=== PATIENT | female | born 1995 | race Two or more races ===

== ENCOUNTER 2024-10-09 09:21 | Observation (INO) | payer BC, SELFPAY ==
[2024-10-09] VITALS (15 sets, daily range): BP systolic 108–140; BP diastolic 69–91; PULSE 67–113; RESP 15–20; TEMP 36.2–37.3; O2SAT 97–100; BMI 35.6
--- NOTE | 2024-10-09 09:52 | EKG_ITS ---
[facility] Test Date: 2024-10-09 Pat Name: SHALONDA TODD Department: Room: - Gender: Female [employer] Investigator: : 1995 Requested By: Gabe Soto Order Number: [id number] Reading MD: Gabe Soto Measurements Intervals [place] Rate: 89 P: 18 MN: 151 QRS: 12 QRSD: 104 T: 13 QT: 352 QTc: 429 Interpretive Statements SINUS RHYTHM INCOMPLETE RIGHT BUNDLE BRANCH BLOCK [90+ ms QRS DURATION, TERMINAL R IN V1/V2, 40+ ms S IN I/aVL/V4/V5/V6] No previous ECG available for comparison /store/S0/[id number].pdf
--- NOTE | 2024-10-09 09:52 | XR_ITS ---
Examination: AP chest single view Technique one AP portable upright chest single view Exam date and time: October 01, 2024 1048 hrs. Indications: Dyspnea today. Findings: Normal heart size. Lungs are clear. Osseous structures are intact. Impression: No active disease
--- NOTE | 2024-10-09 10:18 | EDNOTE_ITS ---
ED Female Urogenital RME/HPI General Chief complaint: Urogenital-Female Stated complaint: Bartholin gland cyst abscess Time Seen by Provider: 10/09/24 09:50 Arrival date/time: 10/09/24 09:21 RME / HPI RME / HPI Narrative: 29 year old female presents to the ED sent by [employer] Dr. Lara for evaluation bartholin cyst. Patient states 4 days ago she noted swelling to the left vulva that is progressively worsening. Accompanied by pain that is aggravated with palpating or sitting, rating 8/10. States she consulted with [employer] Dr. Lara today and while in office he attempted to drain the cyst that was unsuccessful. Denies any pain with bowel movements. Denies fevers, chills, or other associated symptoms. LMP was 09/24/2024 and shorter than normal. Denies . Reports history of similar bartholin cyst, also on the left vulva 2 years ago that was drained. Related Data Home Medications ?Medication ?Instructions ?Recorded ?Confirmed No Known Home Medications 04/05/2203/13 Allergies Allergy/AdvReac Type Severity Reaction Status Date / Time No Known Allergies Allergy Verified 10/09/24 09:25 Review of Systems Review of Systems Narrative Review of Systems: Constitutional: DENIES; Fevers Eyes: DENIES; Loss of vision Head/Ear/Nose: DENIES; Loss of hearing Throat: DENIES; Dysphagia Cardiovascular: DENIES; Chest pain, dyspnea or syncope Respiratory: DENIES; Shortness of breath Gastrointestinal: DENIES; Rectal bleeding or melena. Genitourinary: SEE HPI +bartholin cyst. DENIES; Dysuria (painful or difficult urination) Musculoskeletal: DENIES; Arthralgia (pain in a joint),; Skin: DENIES; Rash Neurological: DENIES; Loss of function or movement Psychiatric: DENIES; recent major life stressor, emotional problem, illicit drug use or abuse Endocrinology: DENIES; Weight change Hematologic/Lymphatic: DENIES; Abnormal bruising Allergic/Immunologic: DENIES; Urticaria (hives) Past Medical History Past Medical History GASTROINTESTINAL: Positive Gastrointestinal Disorders and Gall Bladder Disease REPRODUCTIVE: Positive Previous Pregnancies (X2) Family History FAMILY HISTORY: Positive Family Cardiac Disorders (MOTHER (HTN)), Family Gastrointestinal Problems (MOTHER (GALL BLADDER)) and Family Surgery (MOTHER) Surgical History SURGICAL: Positive Section (X1) Social History SMOKING STATUS: Former smoker 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 Sinus tach on the monitor 140-150 the patient is non-toxic, in no apparent distress and appears healthy with a patent airway, no respiratory distress and has no apparent circulatory problems. Head & Scalp: Normocephalic, atraumatic. Face: Appears normal and is without lesions, deformity. Ears: Left external pinna appears normal. Right external pinna appears normal. Eyes: The sclera is anicteric. No obvious photophobia. The Left and Right Orbit/Lid/Conjunctiva appears normal without swelling, discoloration or inje ction. Nose: The nose is without deformity, discharge or tenderness; Throat: Appears normal. The mucous membranes are pink and moist without exudates, redness or mass seen. The tongue appears normal. Neck: The neck is supple and no apparent mass or adenopathy. Chest: The chest wall is normal in size and symmetry and has no chest wall tenderness or crepitus. The patient displays normal ventilator effort without retractions, accessory muscle use and has adequate air movement bilaterally with no wheezes and no rales. Cardiovascular: Regular rate and rhythm; No murmurs, rubs, or gallops; Gastrointestinal: The abdomen appears normal. No obvious hernias or mass. The abdomen is soft and benign, non-distended, with no pain, no guarding and no rebound tenderness. Bowel sounds are present and normal sounding. No CVA tenderness. Genitourinary: Inspection of the vaginal vulvar area reveals a normal introitus. Bilateral vulvar are supple nontender and normal. There is an area of a 4 x 2 cm indurated tender mass vulva lateral to the perineum on the left appears to be a abscess. There is no drainage. There is an old scar there. Rectal area inspection is normal she is having no pain with defecation. Back/Spine: Normal inspection. Extremities/Musculoskeletal/lymphatic: The bilateral upper and lower extremities are warm. There is no evidence of arterial insufficiency. There is no evidence of venous insufficiency/edema. The patient spontaneously moves bilateral upper and lower extremities with no pain and no limitation of movement. There is no apparent, injury or trauma. Skin: The skin is warm, dry and intact. No rashes. No petechia. No purpura. No abnormal bruising. The color is appropriate with no cyanosis. Mental status/Psychiatric: Mental status is appropriate for age. The patient has no apparent delusions, visual hallucinations, no apparent audible hallucinations. The patient has no apparent suicidal thoughts/ideation and no apparent homicidal thoughts/ideation. Neurological: The patient is awake, alert, interactive, cordial, cooperative and is oriented to name and situation. The patient follows commands and answers historical question with no impairment. There is no visual disturbance apparent. The pupils are equal and reactive bilaterally with normal eye movements and no diplopia The bilateral upper and lower extremities have normal strength, normal range of motion and normal functioning. The gait, station and balance appear to be baseline with no acute change Course Quality Measures none Orders Category Date Time Status Place in Surgical Day Care Routine Admission 10/09/24 10:14 Active condition [Patient Condition] Routine Admission 10/09/24 Ordered EKG (ED ONLY) *Do not use* NOW Care 10/09/24 09:52 Completed IV [Insert IV] NOW Care 10/09/24 10:18 Active EKG (ED Only) Stat Exams 10/09/24 09:52 Draft US OB transvaginal Stat Exams 10/09/24 11:50 Ordered XR chest 1V portable Stat Exams 10/09/24 09:52 Completed Beta HCG,Quantitative Stat Lab 10/09/24 10:08 Completed CBC Stat Lab 10/09/24 10:08 Completed Comprehensive Metabolic Panel Stat Lab 10/09/24 10:08 Completed PT [Prothrombin Time with INR] Stat Lab 10/09/24 10:08 Completed PTT [Partial Thromboplastin Time] Stat Lab 10/09/24 10:08 Completed Type and Screen Stat Lab 10/09/24 10:08 Completed Urinalysis Stat Lab 10/09/24 09:52 Ordered Clindamycin 900Mg Ivpb [Cleocin/D5w Ivpb] 900 mg Med 10/09/24 10:19 Discontinued Pre-Mixed [Pre-mixed Bag] 1 bag IV X1 Morphine Inj Med 10/09/24 10:49 Discontinued 4 mg IVP X1 ONE Ondansetron Inj [Zofran Inj] Med 10/09/24 10:49 Discontinued 4 mg IV X1 ONE Sodium Chloride 0.9% 1000 ml [Ns] 1,000 ml Med 10/09/24 09:51 Active IV 150 mls/hr Code Status Routine Oth 10/09/24 10:15 Ordered Vital Signs Vital signs: Vital Signs Temperature 98.5 F 10/09/24 09:44 Pulse Rate 67 10/09/24 09:44 Respiratory Rate 18 10/09/24 09:44 Blood Pressure 140/91 H 10/09/24 09:44 Pulse Oximetry (%) 97 10/09/24 09:44 Oxygen Delivery Method Room Air 10/09/24 09:44 Pulse ox is 97% on room air which is adequate. Urogenital - Female MDM Narrative MDM Narrative:: Patient states here for evaluation of an abscess concerning for Bartholin's but appears to be posterior to this and lateral to the perineum with a 4 x [address] Lara OB doctor sent her was called and updated he states he will plan to can take her to the operating room. Preop workup is ordered and pending as of 1015 hrs. per Medical workups come back and she is which is consistent with part of her. Being attenuated couple weeks ago Dr Lara is aware and is ordered an ultrasound and CBC came back with a white count of 16,000 PT/INR within normal limits electrolytes and chemistries are unremarkable kidney functions normal. Transaminases are normal. Beta hCG is 8208. She is a positive blood. Chest x-ray reviewed myself shows normal chest with normal heart cardiac silhouette no infiltrates no effusion. At 1220 hrs. patient is waiting for an ultrasound and Dr Lara will make a decision of how to proceed with respect to the abscess drainage. He also ordered some clindamycin. Evidently he still planning to take the patient to the operating room at 1215 hrs. Patient data External records reviewed:: [facility] previous records (I reviewed H&P on 04/06/2022 ) Clinical information provided by:: patient Social determinants that could affect healthcare access:: none Patient has the following chronic illnesses:: Hx of bartholin cyst 2 years ago How is presenting disease/condition affected by chronic disease/condition?: exacerbated by Evaluation data The following diagnostics were reviewed and interpreted by me:: lab results and radiology exam(s) Lab and/or radiology exams considered but not ordered:: None Interpretation Summary: Ordering Physician: Gabe Soto MD Date of Service: 10/09/24 Procedure(s): XR chest 1V portable Accession Number(s): [id number] cc: Gabe Soto MD; Felix Vasquez MD; NO PRIMARY/FAMILY,PHYSICIAN~ Examination: AP chest single view Technique one AP portable upright chest single view Exam date and time: October 01, 2024 1048 hrs. Indications: Dyspnea today. Findings: Normal heart size. Lungs are clear. Osseous structures are intact. Impression: No active disease Dictated By: Felix Vasquez MD Signed By: <Electronically signed by Felix Vasquez MD in OV> 10/09/24 1120 Medications / Prescriptions Medications or Prescriptions considered but not ordered:: None Medication administrations:: Medication Administration History Sodium Chloride (Ns) 1,000 mls @ 150 mls/hr IV .Q6H40M ONE Stop: 10/09/24 16:30 Last Admin: 10/09/24 11:15 Dose: 150 mls/hr Documented By: DO Discontinued Medications Clindamycin Phosphate 900 mg/ (IV Miscellaneous Supplies) 50 mls @ 50 mls/hr IV X1 ONE Stop: 10/09/24 11:18 Last Admin: 10/09/24 11:16 Dose: 50 mls/hr Documented By: DO Morphine Sulfate (Morphine Sulf Inj 10 Mg/Ml Vial) 4 mg IVP X1 ONE Stop: 10/09/24 10:50 Last Admin: 10/09/24 11:14 Dose: 4 mg Documented By: DO Ondansetron HCl (Ondansetron Inj 2 Mg/Ml Inj 2 Ml) 4 mg IV X1 ONE; Protocol Stop: 10/09/24 10:50 Last Admin: 10/09/24 11:13 Dose: 4 mg Documented By: DO See above Consultations Consultation(s) initiated? (list below): Yes Consultation #1 (Physician, Specialty, Details): I spoke with [employer] Dr. Lara. Discussed patients HPI, ED course, exam findings. States he will be taking the patient to the OR. Diagnosis Urogenital Female Differential Diagnosis: bacterial vaginosis, trichomoniasis, vaginitis and cyst of Bartholin's gland Most likely diagnosis given after review of the tests above:: Abscess, perineum Admission Indicated Admission indicated?: indicated Admission Request Was there a request for admission?: Yes Admission Attestation Admission request attestation: Discussed case with [] from Hospitalist service regarding admission. Discussed patients ED course, exam findings, labs, and radiology results. The Hospitalist [agrees,declines] to accept the patient for admission. Disposition Plan Disposition Plan: Admit (to Dr. Lara ) Discharge Plan Plan Patient Disposition: Admit Acute Care w/in Hospital Disposition Comment: Dr Lara to admit Problem List Clinical Impression: Abscess, perineum,
[2024-10-09 10:28] LABS: Basophils % (Auto) 0 % (0-2.5); Eosinophils # (Auto) 0.1 Thou/mm3 (0.0-0.5); Eosinophils % (Auto) 0 % (0-10); Hemoglobin 12.5 g/dL (12.0-16.0); Immature Granulocytes % (Auto) 0 % (0-0); Immature Granulocytes Auto 0.06 Thou/mm3 (0.00-0.00); Lymphocytes # (Auto) 1.9 Thou/mm3 (1.0-4.8); Lymphocytes % (Auto) 11 % (10-50); Mean Corpuscular HGB Conc 32.9 g/dl (31.0-37.0); Mean Corpuscular Volume 79 fL (80-100); Monocytes # (Auto) 0.9 Thou/mm3 (0.0-0.8); Monocytes % (Auto) 5 % (0-12); Neutrophils # (Auto) 13.6 Thou/mm3 (1.8-7.7); Neutrophils % (Auto) 82 % (37-80); Nucleated Red Blood Cell % 0 /100 WBC (0); Platelet Count 281 Thou/mm3 (140-440); RDW Standard Deviation 37.2 fL (36.4-46.3); Red Blood Count 4.81 Miln/mm3 (4.00-5.20); White Blood Count 16.5 Thou/mm3 (3.6-11.0)
[2024-10-09 10:41] LABS: Partial Thromboplastin Time 26.8 Seconds (22.0-36.0); Prothrombin Time 11.3 Seconds (9.0-12.2)
[2024-10-09 10:57] LABS: Alanine Aminotransferase 26 U/L (10-49); Albumin, Serum 4.5 gm/dL (3.5-5.0); Albumin/Globulin Ratio 1.6 (1.2-2.2); Alkaline Phosphatase 92 U/L (46-116); Anion Gap 8 (7-16); Aspartate Amino Transferase 20 U/L (0-34); BUN/Creatinine Ratio 16 Ratio (12-20); Bilirubin,Total 0.4 mg/dL (0.3-1.2); Blood Urea Nitrogen 11 mg/dL (9-23); Calcium 9.3 mg/dL (8.3-10.6); Calcium (Corrected) 9.3 mg/dL (8.5-10.1); Carbon Dioxide 25.5 mMol/L (20.0-31.0); Chloride 105 mMol/L (98-107); Creatinine (Component) 0.7 mg/dL (0.6-1.3); Estimated Creatinine Clearance 126.1 mL/min (>60); Globulin 2.9 gm/dL (2.3-3.5); Glucose 94 mg/dL (74-106); Osmolality,Calculated 275 (275-295); Potassium 3.6 mMol/L (3.4-5.1); Sodium 138 mMol/L (136-145); Total Protein 7.4 gm/dL (5.7-8.2); eGFR > 60 See Note
[2024-10-09 11:05] LABS: Beta HCG,Quantitative 8208 mIU/mL (<5.0)
[2024-10-09] MEDS: ONDANSETRON INJ 2 MG/ML INJ 2 ML 4 MG IV (11:13)
[2024-10-09] MEDS: MORPHINE SULF INJ 10 MG/ML VIAL 4 MG IVP (11:14)
[2024-10-09] MEDS: SODIUM CHLORIDE 0.9% 1000 ML 1,000 ML 150 ML IV (11:15)
[2024-10-09] MEDS: CLINDAMYCIN 900MG IVPB 900 MG in PRE-MIXED 1 BAG 50 MG IV ×2 (11:16→22:14)
--- NOTE | 2024-10-09 11:50 | XR_ITS ---
Examination: OB Transvaginal ultrasound of the pelvis, complete Technique: Transvaginal sonographic images pelvis performed using garcía scale imaging Exam date and time: October 01, 2024 1133 hrs. Indications: Diagnosis Bartholin cyst drainage today. Findings: Uterus 7.9 cm with intrauterine gestational sac 0.8 cm corresponding to 5 weeks 4 days gestational age No pole No cardiac activity Yolk sac is present Right ovary 2.6 cm arterial flow Left ovary 2.3 cm arterial flow Mild fluid in the cul-de-sac Impression: Empty intrauterine gestational sac corresponding to 5 weeks 4 days gestational age Recommend short-term follow-up transvaginal pelvic sonography to document viability
--- NOTE | 2024-10-09 11:58 | PC.NURSE ---
REPORT GIVEN TO LYN IN OR
--- NOTE | 2024-10-09 12:03 | ESHP_ITS ---
Documentation for date of: 10/09/24 [employer] SAL[employer]ANT - HPI History of Present Illness History of present illness: Ms. GORE is a 29 year old female with a history of a left vulvar abscess in 2021 who presented to the office today complaining of pain and swelling in the left lower vulvar area. No fever or drainage or vaginal discharge. LMP 09/24 but her HCG is over 8,000 consistent with first trimester . She denies any pelvic or abdominal pain or vaginal bleeding. Review of Systems Cardiovascular Comments: Past Medical History Past Medical History GENITOURINARY: Positive Genitourinary Disorders (Left vulvar abscess) Surgical History SURGICAL: Positive Section and Hx Cholecystectomy OTHER SURGICAL HX: Incision and Drainage of left vulvar abscess Meds Home Medications and Allergies Home Medications ?Medication ?Instructions ?Recorded ?Confirmed ?Type No Known Home Medications 04/05/2203/13 History Allergies Allergy/AdvReac Type Severity Reaction Status Date / Time No Known Allergies Allergy Verified 10/09/24 09:25 Exam - [employer]ANT Vital Signs Temp Pulse Resp BP Pulse Ox O2 Del Method 99.2 F 104 H 19 128/78 97 Room Air 10/09/24 10:20 10/09/24 10:20 10/09/24 10:20 10/09/24 10:20 10/09/24 10:20 10/09/24 10:20 Routine HEENT Exam Comments: Oropharynx and sclera clear Routine Respiratory Exam Comments: CTA B/L Routine Cardiovascular Exam Comments: RRR Routine Abdominal Exam Comments: Nontender Routine Exam Comments: Left vulvar abscess 4 x 4 cm Left bartholin gland abscess Routine Extremities Exam Comments: Nontender [employer]SULTANT - Results Labs 10/09/24 10:08 10/09/24 10:08 Labs: Short CBC 10/09/24 Range/Units 10:08 WBC 16.5 H (3.6-11.0) Thou/mm3 Hgb 12.5 (12.0-16.0) g/dL Hct 38.0 (36.0-46.0) % Plt Count 281 (140-440) Thou/mm3 BMP 10/09/24 10:08 Sodium 138 Potassium 3.6 Chloride 105 Carbon Dioxide 25.5 BUN 11 Creatinine 0.7 Glucose 94 Calcium 9.3 Liver Function 10/09/24 Range/Units 10:08 Total Bilirubin 0.4 (0.3-1.2) mg/dL AST 20 (0-34) U/L ALT 26 (10-49) U/L Alkaline Phosphatase 92 (46-116) U/L Albumin 4.5 (3.5-5.0) gm/dL Impressions Impression: Left vulvar and bartholin gland abscess Early of uncertain viability with no evidence of extrauterine . Marsupialization of Bartholin Gland/Vulvar abscess Informed consent obtained. Pt made aware of the risks, complications, alternatives and benefits of the proposed procedure and she agrees. Quality Measures Quality Measures none
--- NOTE | 2024-10-09 13:43 | SUR.PHASEI ---
1343: Pt. AAOx4, vitals stable, breathing unlabored, no complaint of pain or nausea, dressing to jay area CDI, no active bleed noted, report received from Felix PERAZA and Nikolai VASQUEZ.
--- NOTE | 2024-10-09 15:30 | SUR.PHASEII ---
1530: Pt. AAOx4, vitals stable, breathing unlabored, no complaint of pain or nausea, peripad in place with minimal blood, vaginal packing is in place, pt. tolerated bites of jello well and sips of water well, gave report to Alana VASQUEZ prior to transfer to room 357. Family made aware of transfer to room.
[2024-10-09] MEDS: cefTRIAXone 1,000 MG in SODIUM CHLORIDE 0.9% (Popper) 50 ML 100 MG IV ×2 (16:01→20:49)
--- NOTE | 2024-10-09 20:59 | PC.NURSE ---
Per Pharmacist Romaine, it is safe to give [place] for pain.
[2024-10-09] MEDS: HYDROcodone/APAP 5/325 TABLET 1 TAB PO (21:01)
[2024-10-10] VITALS: BP 101/65; PULSE 84; RESP 16; TEMP 36.6; O2SAT 98
[2024-10-10 03:08] VITALS: PULSE 80; RESP 16; RESP 97
[2024-10-10] MEDS: HYDROcodone/APAP 5/325 TABLET 1 TAB PO ×2 (03:12→08:10)
--- NOTE | 2024-10-10 03:14 | PC.NURSE ---
Accessed chart to assist primary nurse.
[2024-10-10 04:00] VITALS: BP 110/68; PULSE 71; RESP 18; TEMP 36.1; O2SAT 99
[2024-10-10] MEDS: CLINDAMYCIN 900MG IVPB 900 MG in PRE-MIXED 1 BAG 50 MG IV (05:27)
[2024-10-10 06:01] LABS: Basophils # (Auto) 0.1 Thou/mm3 (0.0-0.2); Basophils % (Auto) 0 % (0-2.5); Eosinophils # (Auto) 0.2 Thou/mm3 (0.0-0.5); Eosinophils % (Auto) 2 % (0-10); Hematocrit 33.9 % (36.0-46.0); Immature Granulocytes % (Auto) 1 % (0-0); Immature Granulocytes Auto 0.06 Thou/mm3 (0.00-0.00); Lymphocytes # (Auto) 2.4 Thou/mm3 (1.0-4.8); Lymphocytes % (Auto) 18 % (10-50); Mean Corpuscular HGB Conc 32.4 g/dl (31.0-37.0); Mean Corpuscular Hemoglobin 25.9 pg (25.0-35.0); Mean Corpuscular Volume 80 fL (80-100); Monocytes # (Auto) 0.8 Thou/mm3 (0.0-0.8); Monocytes % (Auto) 6 % (0-12); Neutrophils # (Auto) 9.6 Thou/mm3 (1.8-7.7); Neutrophils % (Auto) 73 % (37-80); Nucleated Red Blood Cell % 0 /100 WBC (0); Platelet Count 242 Thou/mm3 (140-440); RDW Standard Deviation 37.2 fL (36.4-46.3); Red Blood Count 4.25 Miln/mm3 (4.00-5.20); White Blood Count 13.2 Thou/mm3 (3.6-11.0)
[2024-10-10 07:17] VITALS: PULSE 78; RESP 19; RESP 98
[2024-10-10 07:45] VITALS: BP 100/73; PULSE 77; RESP 19; TEMP 36.7; O2SAT 99
[2024-10-10] MEDS: cefTRIAXone 1,000 MG in SODIUM CHLORIDE 0.9% (Popper) 50 ML 100 MG IV (08:04)
--- NOTE | 2024-10-10 10:18 | PC.NURSE ---
Patient has discharge order. Per MD, discharge after morning dose of rocephine IV.
--- NOTE | 2024-10-10 10:44 | ESPR_ITS ---
RE: SHALONDA GORE : 1995 DATE OF SERVICE: 10/10/2024 S: The patient denies any problem or complaint. She is voiding, ambulating, tolerating regular diet, passing flatus. She denies any vaginal bleeding. She denies any pain that is uncontrolled. She denies any abdominal or pelvic pain. O: Vital Signs: Blood pressure 100/73, heart rate 77, respirations 19, temperature is 98.1, pulse ox is 99% on room air. Lungs: Clear to auscultation bilaterally. Heart: Regular rate and rhythm. Abdomen: Nontender. Extremities: Nontender. LABORATORY DATA: Hemoglobin pre-surgery is 12.5, post-surgery is 11.0. White blood cell count pre-surgery is 16.5, post-surgery is 13.2. Gram stain was negative. Abscess culture is pending. ASSESSMENT: 1. Status post incision and drainage of left vulvar abscess. 2. Early with intrauterine gestational sac at 5 weeks and 4 days too early to confirm viability. P: Discharge home after morning Rocephin dosing. Plan, Augmentin and clindamycin for the next 10 days, hydrocodone p.r.n. pain. These prescriptions were sent via the office electronic computer to her preferred pharmacy in [place]. Discharge instructions given. The patient was made aware to contact me immediately with any high fevers, chills, worsening vulvar pain or swelling, diarrhea, and crampy abdominal pain. The patient has my phone number and will call me this weekend if any problems. Otherwise, I will see her early Saturday morning in the office. DT: 08:00:01 TT: 10:42:00 Ref: [id number] - TID: [id number]
--- NOTE | 2024-10-12 08:46 | ESOP_ITS ---
RE: SHALONDA GORE : 1995 DATE OF OPERATION: 10/09/2024 PREOPERATIVE DIAGNOSES: 1. Left Vulvar abscess. 2. Early . POSTOPERATIVE DIAGNOSES: 1. Left Vulvar abscess. 2. Early . PROCEDURE PERFORMED: Incision and drainage of left vulvar abscess SURGEON: Shawn aLra DO COTTON EXPERT: None. ANESTHESIA: Spinal. ANESTHESIOLOGIST: Dr. Martin. ESTIMATED BLOOD LOSS: 25 mL. COMPLICATIONS: None. COUNTS: Correct. PATHOLOGY: None. CULTURES: Wound culture FINDINGS: A 5 x 5 cm left vulvar abscess containing purulent material but remaining indurated after drainage. DESCRIPTION OF PROCEDURE: After proper informed consent was obtained and the patient was made aware of the risks, complications, alternatives, benefits of the proposed procedure, she was taken to the operating room where she underwent induction of spinal anesthesia. She was prepped and draped in the usual sterile fashion in the dorsal lithotomy position. A timeout was performed. The abscess was incised and a 1 cm incision was used to drain the abscess. The abscess cavity was probed and irrigated with saline. Copious purulent drainage was noted; however, the abscess torres remained indurated after drainage. A gauze ribbon iodoform packing was placed in the os of the abscess cavity. As the patient was awake, I explained to her the nature of her condition, intraoperative findings, expectation for recovery, and the plan to continue antibiotics overnight and observe her in the hospital setting, allowing her more of an opportunity to get IV antibiotics given the size of the abscess. The patient was placed in the supine position and transferred to the recovery room in stable condition. She tolerated the procedure well. Counts were correct. I discussed with the patient's the nature of her condition, intraoperative findings, expectation for recovery. All questions answered. DT: 14:11:24 TT: 17:36:00 Ref: [id number] - TID: [id number] [facility]
== END 2024-10-10 10:26 | disposition home or self-care (01) ==
LOC: SERX 10:39 → S2EX 10:44 → S3NX 17:18 → S2EX 10-12 07:53 → S3NX 10-12 07:53
PROVIDERS: Admitting Provider Specialist; Emergency Provider Emergency Medicine; Referring Provider Specialist; Visit Provider Specialist
PROC: (CPT 56440; principal; 2024-10-09 12:45)
DX: O34.71 Maternal care for abnormality of vulva and perineum, first trimester (principal); N75.1 Abscess of Bartholin's gland; Z82.49 Family history of ischemic heart disease and other diseases of the circulatory system; Z87.891 Personal history of nicotine dependence; Z90.49 Acquired absence of other specified parts of digestive tract; Z01.810 Encounter for preprocedural cardiovascular examination
CPT/HCPCS: 56405; 36415; 71045; 76817; 80053; 81001; 84702; 85025; 85610; 85730; 86850; 86900; 86901; 87070; 87075; 87077; 87186; 87205; 93005; 96365; 96366; 96374; 96375; 99285; A4217; A4649; G0378; J0696; J2270; J2405; J3010; J7030; J7050; S0077; A9270; J0736

== ENCOUNTER 2025-05-23 04:38 | Inpatient (IN) | payer BC, SELFPAY ==
[2025-05-23] VITALS (19 sets, daily range): BP systolic 94–125; BP diastolic 66–90; PULSE 73–94; RESP 13–99; TEMP 36.3–37.5; O2SAT 96–99; BMI 38.5
[2025-05-23] MEDS: RINGERS LACTATED 1000 ML 1,000 ML 999 ML IV (06:06)
[2025-05-23 06:26] LABS: Basophils # (Auto) 0.1 Thou/mm3 (0.0-0.2); Basophils % (Auto) 0 % (0-2.5); Eosinophils # (Auto) 0.2 Thou/mm3 (0.0-0.5); Eosinophils % (Auto) 2 % (0-10); Hematocrit 38.6 % (36.0-46.0); Hemoglobin 12.4 g/dL (12.0-16.0); Immature Granulocytes Auto 0.09 Thou/mm3 (0.00-0.00); Lymphocytes # (Auto) 2.6 Thou/mm3 (1.0-4.8); Lymphocytes % (Auto) 20 % (10-50); Mean Corpuscular HGB Conc 32.1 g/dl (31.0-37.0); Mean Corpuscular Hemoglobin 26.1 pg (25.0-35.0); Mean Corpuscular Volume 81 fL (80-100); Monocytes # (Auto) 0.7 Thou/mm3 (0.0-0.8); Monocytes % (Auto) 6 % (0-12); Neutrophils # (Auto) 9.4 Thou/mm3 (1.8-7.7); Neutrophils % (Auto) 72 % (37-80); Nucleated Red Blood Cell # 0.00 Thou/mm3 (0.00-0.00); Nucleated Red Blood Cell % 0 /100 WBC (0); Platelet Count 246 Thou/mm3 (140-440); RDW Standard Deviation 41.9 fL (36.4-46.3); Red Blood Count 4.75 Miln/mm3 (4.00-5.20); White Blood Count 13.1 Thou/mm3 (3.6-11.0)
[2025-05-23 06:51] LABS: Amphetamine/Metham Scrn,Ur OB Negative (Negative); Benzoylecgonine Screen, Ur OB Negative (Negative); Opiate Screen,Urine OB Negative (Negative); THC Screen,Urine OB Negative (Negative)
--- NOTE | 2025-05-23 06:51 | PD.LDHP ---
Documentation for date of: 05/23/25 OB Labor/Induct. HPI History of Present Illness : 3 Para: 2 Term pregnancies: 2 pregnancies: 0 Living children: 2 History of Abortions: Spontaneous and Elective: 0 History of Vaginal deliveries: 1 History of sections: Yes History of : No Date of last menstrual period: 09/03/24 BONI: 06/10/25 Gestational Age (weeks): 37 Gestational Age (days): 3 Gestational age based on last menstrual period: 37 History of present illness: H and P dictated in Nuance on STAT line #9: [id number] History of Present Adequate Care: Yes Past Medical History Surgical History SURGICAL: Positive Section Meds Home Medications and Allergies Home Medications ?Medication ?Instructions ?Recorded ?Confirmed ?Type ferrous sulfate 325 mg (65 mg 325 mg feeding tube QDAY 05/23/25 05/23/25 History iron) tablet vit no.95-ferrous 1 tab PO QDAY 05/23/25 05/23/25 History fumarate 28 mg-folic acid 800 mcg tablet () Allergies Allergy/AdvReac Type Severity Reaction Status Date / Time No Known Allergies Allergy Verified 05/23/25 05:12 OB Exam Physical Exam Vital signs: Temp Pulse Resp BP Pulse Ox 99 F 73 16 119/89 H 99 05/23/25 04:45 05/23/25 04:51 05/23/25 04:45 05/23/25 04:51 05/23/25 04:58 OB Results Labs 05/23/25 05:50 Labs: Short CBC 05/23/25 Range/Units 05:50 WBC 13.1 H (3.6-11.0) Thou/mm3 Hgb 12.4 (12.0-16.0) g/dL Hct 38.6 (36.0-46.0) % Plt Count 246 (140-440) Thou/mm3
[2025-05-23 07:11] LABS: Syphilis Nonreactive (Nonreactive)
[2025-05-23] MEDS: METOCLOPRAMIDE INJ 5 MG/ML VIAL 2 ML 10 MG IVP (07:35)
[2025-05-23] MEDS: FAMOTIDINE INJ 10 MG/ML VIAL 2 ML 20 MG IV (07:36)
[2025-05-23] MEDS: ceFAZolin/D5W 2 GM IV 2 GM/100 ML BAG IV (07:36)
--- NOTE | 2025-05-23 07:39 | ESDS_ITS ---
DS: Providers Provider Date of admission: 05/23/25 05:40 Primary care physician: Physician No Primary/Family Admitting Provider: Shawn Lara MD Attending Provider on Admission: Shawn Lara MD Attending Provider on DC: Shawn Lara MD Discharging Provider: Shawn Lara MD DS: Diagnosis Problem List Completed Was Problem List Reviewed/Reconciled?: Yes Summary/Hosp Course Brief History: H and P dictated in Nuance on STAT line #9: [id number] Peripartum Data Procedures: Procedures Operation Date: 05/23/25 07:45 <No data on this case meets the specified criteria> Time Spent with Patient Time attestation: Total time spent providing and/or coordinating discharge services: Exam Vital Signs Temp Pulse Resp BP Pulse Ox 99 F 73 16 119/89 H 99 05/23/25 04:45 05/23/25 04:51 05/23/25 04:45 05/23/25 04:51 05/23/25 04:58 Discharge Plan Plan Patient Disposition: HOME (Self Care) Patient condition on transfer: Stable Prescriptions/Referrals Prescriptions/Med Rec: New hydrocodone-acetaminophen 5-325 mg tablet 1 tab PO Q6H MDD 4 PRN (Reason: pain) Qty: 20 0RF No Action ferrous sulfate 325 mg (65 mg iron) tablet 325 mg feeding tube QDAY Patient Comments: Take 1 tablet by mouth once a day PNV no.95-ferrous fumarate-FA [] 28 mg iron- 800 mcg tablet 1 tab PO QDAY Referrals: No Primary/Family,Physician [Primary Care Provider] Patient/Caregiver Discharge Instructions Discharge Activity: activity as tolerated Other Discharge Activity Instructions:: Follow up office 1 week. Education Materials: C Section Dc Print Language: Ukrainian Stand Alone Forms: Cynthia Award Info., Patient Portal Info Letter Planned Discharge Date 05/25/25
--- NOTE | 2025-05-23 07:39 | PD.GYNPROC ---
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 Procedure Date of procedure: 05/23/25 Procedure Performed: Repeat low-transverse section via Pfannenstiel skin incision Indication: Intrauterine at 37 weeks and 3 days Premature rupture of membranes Previous delivery Elects repeat delivery Pre-Op diagnosis: Intrauterine at 37 weeks and 3 days Premature rupture of membranes Previous delivery Elects repeat delivery Post-Op diagnosis: Intrauterine at 37 weeks and 3 days Premature rupture of membranes Previous delivery Elects repeat delivery Anesthesia type: Spinal Procedure description: After proper informed consent was obtained and the patient was made aware of the risks, complications, alternatives and benefits of the proposed procedure she was taken to the operating room where she underwent induction of spinal anesthesia. She was prepped and draped in the usual sterile fashion. A timeout was performed.? A Pfannenstiel skin incision was made with the scalpel and carried through to the underlying layer of fascia with the Bovie. The fascia was nicked in the midline incision and the incision was extended bilaterally with the Bovie. The inferior aspect of the fascial incision was grasped with Vega clamps elevated and the underlying rectus muscle dissected off with the Bovie. The superior aspect the fascial incision was grasped with Vega clamps elevated and the underlying rectus muscle dissected off with the Bovie. The rectus muscles were in the midline. The peritoneum was grasped between 2 Abbott clamps and entered sharply with the Metzenbaum scissors. The peritoneum was extended superiorly and inferiorly with good visualization of the bladder. The vesicouterine peritoneum was incised transversely and the bladder flap created digitally. A Comptche blade was inserted. A low transverse incision was made in the uterus with a scapel and the incision was extended digitally. The female 's head delivered and the mouth and nose were suctioned with the bulb suction. The shoulder and body delivered atraumatically. The cord was clamped after 30 second delayed cord clamping and the cord was cut.? The was handed off to the waiting Pediatric staff, cord blood was collected for lab testing. The placenta was removed complete and intact. The uterus was exteriorized and cleared of all clots and debris. The uterine incision was closed with #1-0 chromic catgut suture in a running interlocking fashion. A second layer of the same suture was used to imbricate the first layer and obtain excellent hemostasis. The vesicouterine peritoneum was closed with 2-0 chromic catgut suture in a running fashion. The firm uterus was returned to the abdomen. The gutters were cleared of all clots and debris. The peritoneum was closed with 0 chromic catgut suture in running fashion. The rectus muscle was closed with 0 chromic catgut suture. The fascia was closed with 0 Vicryl beginning at each angle and ending in the center in a running fashion. The subcutaneous tissue was irrigated with warmed normal saline solution and found to be hemostatic. The subcutaneous tissue was closed with 2-0 chromic catgut suture in a running fashion. The skin was closed with 4-0 Monocryl. A Dermabond Prineo dressing was applied and a sterile pressure dressing was applied.? She tolerated the procedure well. Counts were correct. I discussed with the patient the nature of her condition, intraoperative findings and expectation for recovery all? questions answered. Specimen: none Estimated blood loss (ml): 500 Findings: Live baby girl Apgars 9/9 Weight 5' 13 Clear amniotic fluid Cephalic, occiput posterior. Uterus ovaries and fallopian tubes grossly within normal limits Placenta removed complete and intact Complications: none Surgical staff STU Reinoso RNFA Dr Geiling Surgeon Operation Date: 05/23/25 07:45 <No data on this case meets the specified criteria> Diagnosis Discharge Diagnosis (1) delivery delivered: Status: Acute Problem List Completed Was Problem List Reviewed/Reconciled?: Yes
[2025-05-23 12:49] LABS: Basophils # (Auto) 0.1 Thou/mm3 (0.0-0.2); Basophils % (Auto) 0 % (0-2.5); Eosinophils # (Auto) 0.1 Thou/mm3 (0.0-0.5); Eosinophils % (Auto) 1 % (0-10); Hematocrit 36.6 % (36.0-46.0); Hemoglobin 11.9 g/dL (12.0-16.0); Immature Granulocytes Auto 0.11 Thou/mm3 (0.00-0.00); Lymphocytes # (Auto) 2.1 Thou/mm3 (1.0-4.8); Lymphocytes % (Auto) 12 % (10-50); Mean Corpuscular HGB Conc 32.5 g/dl (31.0-37.0); Mean Corpuscular Hemoglobin 26.1 pg (25.0-35.0); Mean Corpuscular Volume 80 fL (80-100); Monocytes # (Auto) 0.9 Thou/mm3 (0.0-0.8); Monocytes % (Auto) 5 % (0-12); Neutrophils # (Auto) 14.2 Thou/mm3 (1.8-7.7); Neutrophils % (Auto) 82 % (37-80); Nucleated Red Blood Cell # 0.00 Thou/mm3 (0.00-0.00); Nucleated Red Blood Cell % 0 /100 WBC (0); Platelet Count 229 Thou/mm3 (140-440); RDW Standard Deviation 41.8 fL (36.4-46.3); Red Blood Count 4.56 Miln/mm3 (4.00-5.20); White Blood Count 17.4 Thou/mm3 (3.6-11.0)
[2025-05-23] MEDS: ONDANSETRON INJ 2 MG/ML INJ 2 ML 4 MG IVP (13:58)
--- NOTE | 2025-05-23 16:49 | OBDSUM_ITS ---
Data ([facility]) Data Hx Section: Yes : 3 Term: 2 : 0 Livin Abortions: Spontaneous & Theraputic: 0 Delivery Data ([facility]) Labor Data Induction/Augmentation Agent: None ROM date: 05/23/25 ROM time: 04:00 Amniotic membrane rupture type: Spontaneous Amniotic fluid description: Clear Delivery Data EDC: 06/10/25 EDC calculated by:: LMP/early US confirmation Onset of labor date: 05/23/25 Onset of labor time: 08:09 Complete dilation date: 05/23/25 Complete dilation time: 08:09 delivery date: 05/23/25 [place] delivery time: 08:09 Gestational age (weeks): 37 Gestational age (days): 3 Placenta delivery date: 05/23/25 Placenta delivery time: 08:11 Stage 1 total time: Labor - Stage 1 Duration 0 minutes Delivered by: Geiling Delivery nurse: [email or web address] Ayana nurse: Rohit Workforce Staffing Advisor at delivery: No Support person(s) at delivery: FOB Other staff at delivery: Misty, STU [place], OB OR tech MARQUIS Connors Delivery Method Delivery method: Low Transverse Presentation: Vertex position: OP Anesthesia Type Anesthesia Type: None Anesthesia type: Spinal Placenta Placenta delivery description: Spontaneous Cord blood sent to lab: Yes cord blood collection: Cord Blood Type Episiotomy Episiotomy description: None EBL Estimated blood loss (ml): 500 Umbilical Cord cord description: 3 Vessels Additional Procedures None Complications Complications: None [place] Data ([facility]) Data order: 1 [place]'s gender: Female Identification band number: [id number] weight (gms): 5 lb 13.476 oz Weight (pounds): 5 lbs and 13.5 ozs [place] length: 18.5 in 1 minute: 9 5 minutes: 9
[2025-05-23] MEDS: OXYTOCIN in NS 20 units 20 UNIT/1,000 ML BAG 125 UNIT IV (17:38)
[2025-05-23] MEDS: KETOROLAC INJ 30 MG/ML VIAL IVP (19:47)
[2025-05-24] MEDS: IBUPROFEN TAB 400 MG TABLET 800 MG PO ×3 (03:46→23:51)
[2025-05-24 03:57] VITALS: BP 114/74; PULSE 80; RESP 16; TEMP 37.1; O2SAT 97
[2025-05-24 07:56] VITALS: BP 100/66; PULSE 79; RESP 17; TEMP 36.8; O2SAT 96
[2025-05-24] MEDS: DOCUSATE SOD 100 MG CAPSULE PO (08:14)
[2025-05-24] MEDS: ENOXAPARIN SOD INJ 40 MG/0.4 ML SYRINGE SC (08:14)
--- NOTE | 2025-05-24 09:40 | ESPR_ITS ---
RE: SHALONDA GORE : 1995 DATE OF SERVICE: 05/24/2025 SUBJECTIVE: Post op day #1. Patient denies any problem or complaints. She is voiding and ambulating and tolerating her diet and passing flatus. She denies any excessive vaginal bleeding. She denies any dizziness or lightheadedness. She denies any chest pain, palpitation, shortness of breath or lower extremity pain. OBJECTIVE: Vital signs: Stable. She is afebrile. Lungs: Clear to auscultation bilaterally. Heart: Regular rate and rhythm. Abdomen: Dressing dry and intact. Fundus is firm. Extremities: Nontender. ASSESSMENT AND PLAN: Postoperative day #1 status post delivery. Plan, remove dressing, DC IV, support, encourage ambulation, possible discharge home tomorrow. DT: 09:31:07 TT: 09:39:00 Ref: [id number] - TID: [id number]
--- NOTE | 2025-05-24 10:03 | ESHP_ITS ---
RE: SHALONDA GORE : 1995 DATE OF ADMISSION: 05/23/2025 HISTORY OF PRESENT ILLNESS: This is a 30-year-old 3, para 2-0-0-2 with due date of 06/10 with intrauterine at 37 weeks and 3 days who presents to labor and delivery complaining of leaking fluid and is noted to be grossly ruptured. The patient reports occasional contractions. She denies any bleeding. She reports normal movement. Her care was complicated by a first trimester left vulvar abscess which was managed with incision and drainage under general anesthesia and never reoccurred throughout the . The vulvar abscess was due to group B strep. Her has otherwise been uncomplicated. She did have a false positive serological test for syphilis but her confirmatory test was negative. ALLERGIES: NO KNOWN DRUG ALLERGIES. MEDICATIONS: 1. multivitamin 1 p.o. daily. 2. Aspirin 81 mg 1 p.o. daily. 3. Ferrous sulfate 325 mg 1 p.o. daily. 4. Omeprazole 20 mg 1 p.o. daily. PAST MEDICAL HISTORY: Preeclampsia in her first , delivery, vulvar abscess due to group B strep 11/06/2024. Gallstones. Low back pain. Gastroesophageal reflux disease. FAMILY HISTORY: Paternal grandmother and maternal grandmother diabetes. Mother, paternal grandmother, and maternal grandmother hypertension. OB HISTORY: 2010, 39-week normal vaginal delivery, 6 pound 14 ounce male, no complications. 2021, 38-week delivery, 5 pound 14 ounce male, complicated by preeclampsia without severe features. PAST SURGICAL HISTORY: delivery 01/2022 and cholecystectomy 01/2022. REVIEW OF SYSTEMS: She denies any chest pain, palpitations, cough, fever, shortness of breath, or lower extremity pain. She denies any headache, change of vision, or right upper quadrant pain. PHYSICAL EXAMINATION: Vital Signs: Blood pressure is 119/77, heart rate 88, respiration 18, temperature is 98.6. HEENT: Oropharynx and sclerae clear. LUNGS: Clear to auscultation bilaterally. HEART: Regular rate and rhythm. ABDOMEN: Gravid, term size consistent with estimated weight 7 and a quarter pounds. EXTREMITIES: Nontender. SKIN: No gross rashes or lesions. NEUROLOGIC: No focal deficit. ASSESSMENT AND PLAN: Intrauterine at 37 weeks and 3 days, premature rupture of membranes, previous delivery, elect repeat delivery. PLAN: Repeat delivery. Informed consent was obtained and the patient made aware of the risks, complications, alternatives, and benefits of delivery and she agrees. DT: 06:49:00 TT: 07:23:00 Ref: [id number] - TID: [id number]
[2025-05-24 11:41] VITALS: BP 116/77; PULSE 80; RESP 17; TEMP 36.3; O2SAT 97
[2025-05-24 20:00] VITALS: BP 104/71; PULSE 98; RESP 18; TEMP 36.8; O2SAT 97
[2025-05-25 04:00] VITALS: BP 117/72; PULSE 80; RESP 17; TEMP 36.6; O2SAT 98
--- NOTE | 2025-05-25 06:29 | ESPR_ITS ---
RE: SHALONDA GORE : 1995 DATE OF SERVICE: 05/25/2025 SUBJECTIVE: Postop day #2, patient denies any problem or complaint. She is voiding and ambulating and tolerating a regular diet and passing flatus. She denies any excessive vaginal bleeding. She denies any dizziness or lightheadedness. She denies any chest pain, palpitation, shortness of breath or lower extremity pain. OBJECTIVE: Vital Signs: Blood pressure is 117/72, heart rate 80, respirations 17, temperature is 97.9, and pulse oximetry is 98% on room air. Lungs: Clear to auscultation bilaterally. Heart: Regular rate and rhythm. Abdomen: Incision clear and intact. Fundus is firm. Extremities: Nontender. ASSESSMENT AND PLAN: Postoperative day #2, status post delivery. Plan is discharge home. Discharge instructions given. Follow up in the office in 1 week. DT: 06:06:48 TT: 06:27:00 Ref: [id number] - TID: [id number]
[2025-05-25 07:36] VITALS: BP 118/79; PULSE 79; RESP 16; TEMP 36.4; O2SAT 98
[2025-05-25] MEDS: ENOXAPARIN SOD INJ 40 MG/0.4 ML SYRINGE SC (08:26)
[2025-05-25] MEDS: DOCUSATE SOD 100 MG CAPSULE PO (08:26)
[2025-05-25] MEDS: IBUPROFEN TAB 400 MG TABLET 800 MG PO (09:56)
== END 2025-05-25 11:50 | disposition home or self-care (01) | DRG 788 ==
LOC: S4SX 07:06 → S4NX 07:39
PROVIDERS: Admitting Provider Specialist; Visit Provider Specialist
PROC: 10D00Z1 Extraction of Products of Conception, Low, Open Approach (ICD-10-PCS; CPT 59514; principal; 2025-05-23 07:30)
DX: O34.211 Maternal care for low transverse scar from previous cesarean delivery (principal); O42.02 Full-term premature rupture of membranes, onset of labor within 24 hours of rupture; K21.9 Gastro-esophageal reflux disease without esophagitis; O99.62 Diseases of the digestive system complicating childbirth; Z37.0 Single live birth; Z3A.37 37 weeks gestation of pregnancy; Z90.49 Acquired absence of other specified parts of digestive tract; Z79.82 Long term (current) use of aspirin; Z79.899 Other long term (current) drug therapy
CPT/HCPCS: 36415; 59025; 80307; 84112; 85025; 86780; 86850; 86900; 86901; A4217; A4314; A4649; J0689; J1650; J1885; J2274; J2371; J2405; J2590; J2765; J3010; J3490; J7120; A9270; J2270